=== PATIENT | male | born 1975 | race Caucasian/White ===

== ENCOUNTER 2024-02-23 17:13 | Emergency (ER) | payer OTHER ==
[~2024-02-23] VITALS: Ht 182.9 cm; Wt 88.5 kg
[2024-02-23] MEDS ORDERED: DIAZ5I (17:40)
[2024-02-23] MEDS ORDERED: OXYC5 (17:40)
[2024-02-23] MEDS ORDERED: GABA100 (17:40)
[2024-02-23 17:41] LABS: BASOPHILS ABSOLUTE AUTO 0.03 K/mm3 (0.00-0.23); BASOPHILS PERCENT AUTO 1 % (0-2); EOSINOPHILS ABSOLUTE AUTO 0.11 K/mm3 (0.00-0.68); EOSINOPHILS PERCENT AUTO 3 % (0-6); Hematocrit 43.3 % (37.0-53.0); Hemoglobin 14.7 g/dL (13.5-17.5); IMMATURE GRAN ABSOLUTE AUTO 0.01 K/mm3 (0.00-0.10); IMMATURE GRAN PERCENT AUTO 0 % (0-1); LYMPHOCYTES ABSOLUTE AUTO 1.79 K/mm3 (0.84-5.20); LYMPHOCYTES PERCENT AUTO 44 % (21-46); MONOCYTES ABSOLUTE AUTO 0.32 K/mm3 (0.16-1.47); MONOCYTES PERCENT AUTO 8 % (4-13); Mean Corpuscular HGB 31.7 pg (26.0-34.0); Mean Corpuscular HGB Conc 33.9 g/dL (31.5-36.5); Mean Corpuscular Volume 94 fL (80-100); Mean Platelet Volume 9.5 fL (9.1-12.4); NEUTROPHILS ABSOLUTE AUTO 1.78 K/mm3 (1.96-9.15); NEUTROPHILS PERCENT AUTO 44 % (41-73); Platelet Count 130 K/mm3 (150-400); RDW Coefficient Variation 14.7 % (11.7-14.2); RDW Standard Deviation 50.7 fL (35.1-46.3); Red Blood Cell Count 4.63 M/mm3 (4.30-5.90); White Blood Cell Count 4.04 K/mm3 (4.00-11.30)
[2024-02-23] MEDS ORDERED: AMPDEX5 (17:41)
[2024-02-23 18:06] LABS: Albumin, Blood 3.6 g/dL (3.4-5.0); Albumin/Globulin Ratio 0.8 (0.8-1.8); Bilirubin, Total 0.8 mg/dL (0.1-1.0); Bun/Creatinine Ratio 10.3 (12.0-20.0); Creatinine, Blood 0.68 mg/dL (0.60-1.20); Globulin, Blood 4.3 g/dL (2.2-4.0); Potassium, Blood 3.6 mmol/L (3.5-5.5); Total Protein, Blood 7.9 g/dL (6.4-8.2)
[2024-02-23] MEDS ORDERED: FentaNYL Citrate 50 MCG/ML 2 ML Injection IV ONE (19:05)
[2024-02-23] MEDS ORDERED: HYDROmorphone HCl/Pf 1MG SYR IV ONE (20:45)
[2024-02-23] MEDS ORDERED: NS 1,000 ML IV SCH (22:40)
== END 2024-02-24 00:38 | disposition home or self-care (01) ==
LOC: ER 17:13
PROVIDERS: Student in an Organized Health Care Education/Training Program
DX: R10.32 Left lower quadrant pain (principal); K62.5 Hemorrhage of anus and rectum; Z79.899 Other long term (current) drug therapy
CPT/HCPCS: 74174; 80053; 83605; 85025; 93005; 93010; 96361; 96374-59; 96375; 99284-25; J1171; J3010; J7030; Q9967

== ENCOUNTER 2024-04-01 10:26 | Inpatient (IN) | payer OTHER ==
[~2024-04-01] VITALS: Ht 182.9 cm; Wt 91.4 kg
[~2024-04-01 10:26] MED LIST: AMPDEX5; DIAZ5I; GABA100; OXYC5
[2024-04-01 10:47] LABS: BASOPHILS ABSOLUTE AUTO 0.05 K/mm3 (0.00-0.23); BASOPHILS PERCENT AUTO 1 % (0-2); EOSINOPHILS ABSOLUTE AUTO 0.14 K/mm3 (0.00-0.68); EOSINOPHILS PERCENT AUTO 3 % (0-6); Hematocrit 44.5 % (37.0-53.0); Hemoglobin 15.2 g/dL (13.5-17.5); IMMATURE GRAN ABSOLUTE AUTO 0.01 K/mm3 (0.00-0.10); IMMATURE GRAN PERCENT AUTO 0 % (0-1); LYMPHOCYTES ABSOLUTE AUTO 1.41 K/mm3 (0.84-5.20); LYMPHOCYTES PERCENT AUTO 30 % (21-46); MONOCYTES ABSOLUTE AUTO 0.15 K/mm3 (0.16-1.47); MONOCYTES PERCENT AUTO 3 % (4-13); Mean Corpuscular HGB 32.8 pg (26.0-34.0); Mean Corpuscular HGB Conc 34.2 g/dL (31.5-36.5); Mean Corpuscular Volume 96 fL (80-100); Mean Platelet Volume 9.6 fL (9.1-12.4); NEUTROPHILS PERCENT AUTO 62 % (41-73); Platelet Count 144 K/mm3 (150-400); RDW Coefficient Variation 13.7 % (11.7-14.2); RDW Standard Deviation 48.7 fL (35.1-46.3); Red Blood Cell Count 4.64 M/mm3 (4.30-5.90); White Blood Cell Count 4.66 K/mm3 (4.00-11.30)
[2024-04-01 11:24] LABS: International Normalized Ratio 1.08; Prothrombin Time Results 11.5 Sec (9.7-11.5)
[2024-04-01] MEDS ORDERED: FentaNYL Citrate 50 MCG/ML 2 ML Injection IV ONE ×3 (11:30→18:05)
[2024-04-01] MEDS ORDERED: Pantoprazole Sodium 40 MG Injection IV ONE (11:30)
[2024-04-01] MEDS ORDERED: Ondansetron HCl 2 MG / ML 2ML Vial IV ONE (11:30)
[2024-04-01 12:19] LABS: Albumin, Blood 4.8 g/dL (3.4-5.0); Bun/Creatinine Ratio 14.4 (12.0-20.0); Calcium, Blood 9.3 mg/dL (8.5-10.1); Creatinine, Blood 0.63 mg/dL (0.60-1.20); Globulin, Blood 4.8 g/dL (2.2-4.0); Potassium, Blood 4.1 mmol/L (3.5-5.5); Total Protein, Blood 9.6 g/dL (6.4-8.2)
[2024-04-01] MEDS ORDERED: Haloperidol Lactate Inj. 5 MG/ML Injection IV ONE (12:45)
[2024-04-01] MEDS ORDERED: D5W-NS 1,000 ML IV SCH (13:30)
[2024-04-01] MEDS ORDERED: Thiamine HCl 100 MG in NS 50 ML IV ONE (13:35)
[2024-04-01 13:57] LABS: Base Excess Venous -17.4 mmol/L; Bicarbonate Venous 13.3 mmol/L (24.0-30.0); PCO2 Venous 23.8 mmHg (38-42); pH Blood Venous 7.24 (7.34-7.37)
[2024-04-01 14:12] LABS: Beta-hydroxybutyrate 98.3 mg/dL (0.2-2.8)
[2024-04-01] MEDS ORDERED: HYDROcodone 7.5-APAP 325 TAB PO PRN (15:10)
[2024-04-01] MEDS ORDERED: ChlordiazePOXIDE 25 MG Cap PO PRN (15:15)
[2024-04-01] MEDS ORDERED: NS 1,000 ML IV SCH (15:15)
[2024-04-01] MEDS ORDERED: LORazepam 2 MG/ML 1ML Injection IV PRN (15:15)
[2024-04-01] MEDS ORDERED: CefTRIAXone Sodium 1,000 MG in NS 100 ML IV SCH (15:21)
[2024-04-01] MEDS ORDERED: FentaNYL Citrate 50 MCG/ML 2 ML Injection IV PRN (15:30)
[2024-04-01] MEDS ORDERED: CefTRIAXone 1000 MG Vial ONE (15:46)
[2024-04-01] MEDS ORDERED: MetroNIDAZOLE 500MG/NS 100 ml 100 ML IV SCH (16:00)
[2024-04-01 16:29] LABS: Bun/Creatinine Ratio 13.9 (12.0-20.0); Creatinine, Blood 0.65 mg/dL (0.60-1.20); Potassium, Blood 4.1 mmol/L (3.5-5.5)
[2024-04-01] MEDS ORDERED: FLU VACC TS2024-25(6MOS UP)/PF 45 MCG/0.5 ML SYRINGE IM ONE (17:00)
[2024-04-01 17:32] VITALS: BP 139/82
[2024-04-01] MEDS ORDERED: Ondansetron HCl 2 MG / ML 2ML Vial IV PRN ×2 (18:05→21:05)
--- NOTE | 2024-04-01 18:27 | NUR ---
SHIFT SUMMARY PT A&OX4, VSS, AND AMB W/ SBA FROM GURNEY TO BED. PT C/O PAIN AND NAUSEA THAT WAS MEDICATED PER EMAR. GI PANEL UNCOLLECTED AT THIS TIME DUE TO NO BM FROM PT. PT ORIENTED TO ROOM AND CALL LIGHT, CALL LIGHT PLACED WITHIN REACH.
[2024-04-01] MEDS ORDERED: HYDROmorphone HCl/Pf 1MG SYR IV PRN (20:20)
[2024-04-01 20:53] VITALS: BP 131/92
[2024-04-01] MEDS ORDERED: Lactobacil 2-S.Thermo-Bifido 1 1 Cap PO SCH (21:00)
[2024-04-01] MEDS ORDERED: Sennosides 8.6 MG Tab PO SCH (21:00)
[2024-04-02 00:31] VITALS: BP 129/81
[2024-04-02 03:20] VITALS: BP 128/84
[2024-04-02] MEDS ORDERED: Pantoprazole Sodium 40 MG Injection IV SCH (06:00)
[2024-04-02 06:16] LABS: BASOPHILS ABSOLUTE AUTO 0.03 K/mm3 (0.00-0.23); BASOPHILS PERCENT AUTO 1 % (0-2); EOSINOPHILS PERCENT AUTO 0 % (0-6); Hematocrit 36.6 % (37.0-53.0); Hemoglobin 12.6 g/dL (13.5-17.5); IMMATURE GRAN ABSOLUTE AUTO 0.01 K/mm3 (0.00-0.10); IMMATURE GRAN PERCENT AUTO 0 % (0-1); LYMPHOCYTES ABSOLUTE AUTO 0.81 K/mm3 (0.84-5.20); LYMPHOCYTES PERCENT AUTO 22 % (21-46); MONOCYTES ABSOLUTE AUTO 0.25 K/mm3 (0.16-1.47); MONOCYTES PERCENT AUTO 7 % (4-13); Mean Corpuscular HGB Conc 34.4 g/dL (31.5-36.5); Mean Corpuscular Volume 96 fL (80-100); NEUTROPHILS ABSOLUTE AUTO 2.59 K/mm3 (1.96-9.15); NEUTROPHILS PERCENT AUTO 70 % (41-73); Platelet Count 75 K/mm3 (150-400); RDW Coefficient Variation 13.2 % (11.7-14.2); RDW Standard Deviation 46.9 fL (35.1-46.3); Red Blood Cell Count 3.82 M/mm3 (4.30-5.90); White Blood Cell Count 3.69 K/mm3 (4.00-11.30)
--- NOTE | 2024-04-02 06:31 | NUR ---
SHIFT SUMMARY PT A&Ox4. PT C/O ABD PAIN AND NAUSEA T/O NIGHT. MEDICATED PER EMAR. PT TOLERATING PO MEDICATIONS. NO EPISODES OF VOMITTING AND NO BM. PT REPORTS HE IS PASSING SOME GAS. NO EVENTS ON TELE. NS INFUSING @ 100ml/hr. VSS. BED IN LOWEST POSITION AND CALL LIGHT IN REACH.
[2024-04-02 06:54] LABS: Albumin, Blood 3.7 g/dL (3.4-5.0); Bilirubin, Total 1.8 mg/dL (0.1-1.0); Bun/Creatinine Ratio 14.6 (12.0-20.0); Calcium, Blood 8.6 mg/dL (8.5-10.1); Creatinine, Blood 0.62 mg/dL (0.60-1.20); Globulin, Blood 3.8 g/dL (2.2-4.0)
[2024-04-02 06:56] LABS: Total Protein, Blood 7.5 g/dL (6.4-8.2)
[2024-04-02 07:34] VITALS: BP 137/92
[2024-04-02] MEDS ORDERED: Potassium Chloride 40 MEQ in NS 250 ML IV ONE (07:55)
[2024-04-02] MEDS ORDERED: Thiamine HCl 100 MG in NS 50 ML IV SCH (09:00)
[2024-04-02] MEDS ORDERED: Folic Acid 1 MG in NS 50 ML IV SCH (09:00)
[2024-04-02] MEDS ORDERED: HYDROmorphone HCl 2 MG Tab PO PRN (11:30)
[2024-04-02] MEDS ORDERED: Ketorolac Tromethamine 30mg Vial IV PRN (11:35)
[2024-04-02 14:00] VITALS: BP 133/74
--- NOTE | 2024-04-02 18:11 | NUR ---
RN NOTE LIQUID STOOL ~100 ML DARK BROWN COMPLETELY LIQUID. SENT TO LAB. + ORACIO PALOMINO. GIVEN EDMOND.
--- NOTE | 2024-04-02 18:21 | NUR ---
SHIFT SUMMARY MR GUSMAN HAS HAD ONE LIQUID DARK BROWN STOOL TODAY. OCCASIONAL DRY HEAVES, NO EMESIS. HE C/O CONSTANT ABDOMINAL PAIN THAT HE RATES 8-9/10 MOST OF THE SHIFT. HIS FACIAL EXPRESSION IS RELAXED, QUIET APPROPPRIATE CONVERSATION. HE DENIES VERBAL OR AUDITORY HALLUCINATIONS, NO TREMORS. REQUESTING PAIN MEDICATIONS SOON THEY ARE DUE. BED LOW, CALL LIGHT IN REACH.
[2024-04-02 19:23] VITALS: BP 131/75
--- NOTE | 2024-04-02 19:58 | NUR ---
PT HAVING PERSISTENT N/V AFTER GETTING IV ZOFRAN AT APPROX 1810. DISCUSSED WITH HOSPITALIST. NEW ORDER RECEIVED FOR REGLAN 5MG IV Q6H PRN N/V.
[2024-04-02] MEDS ORDERED: Metoclopramide HCl 5MG / ML 2ML Vial IV PRN (20:00)
[2024-04-02 20:01] LABS: Adenovirus F 40/41 Not Detected (NOT DETECT); Astrovirus Not Detected (NOT DETECT); Campylobacter Sp Not Detected (NOT DETECT); Cryptosporidium Not Detected (NOT DETECT); Cyclospora Cayetanensis Not Detected (NOT DETECT); E. Coli O157 Not Detected (NOT DETECT); Entamoeba Histolytica Not Detected (NOT DETECT); Enteroaggregative E. coli-EAEC Not Detected (NOT DETECT); Enteropathogenic E. coli-EPEC Not Detected (NOT DETECT); Enterotoxigenic E. coli-ETEC Not Detected (NOT DETECT); Giardia Lamblia Not Detected (NOT DETECT); Norovirus GI/GII Not Detected (NOT DETECT); Plesiomonas Shigelloides Not Detected (NOT DETECT); Rotavirus A Not Detected (NOT DETECT); Salmonella Sp Not Detected (NOT DETECT); Sapovirus Not Detected (NOT DETECT); Shiga Toxin-prod E. coli-STEC Not Detected (NOT DETECT); Shigella/Enteroin E. coli-EIEC Not Detected (NOT DETECT); Vibrio Cholerae Not Detected (NOT DETECT); Vibrio Sp Not Detected (NOT DETECT); Yersinia Enterocolitica Not Detected (NOT DETECT)
--- NOTE | 2024-04-02 22:47 | NUR ---
PT C/O N/V AND HAD X1 EMESIS AT BEGINNING OF SHIFT SHORTLY AFTER GETTING PO DILAUDED FROM DAY SHIFT NURSE. THIS NURSE DISPOSED OF EMESIS AND MEDICATION. PRN CIWA DONE WITH A SCORE OF 9. PT REPORTS LAST DRINK WAS "4 DAYS AGO." NEW ORDER REC'D FOR IV REGLAN 5MG Q 6H PRN N/V. ADMINISTERED WITH MINIMAL EFFECT; PT STILL WRETCHING WITH JUST SALIVA IN EMESIS BAG. PRN ATIVAN 1MG IV GIVEN PER ORDER FOR CIWA SCORE. PT CONTINUES TO ASK FOR IV DILAUDED. NOTED DECREASED WRETCHING AFTER ATIVAN GIVEN.
[2024-04-02 23:55] VITALS: BP 140/94
[2024-04-03] MEDS ORDERED: HYDROmorphone HCl/Pf 1MG SYR IV PRN (00:55)
[2024-04-03 04:01] VITALS: BP 126/85
--- NOTE | 2024-04-03 04:47 | NUR ---
WALLCOVERING TEXTURER SUMMARY: SEE NURSING NOTE AT BEGINNING OF SHIFT FOR MORE INFO. PT ADMITTED FOR COLITIS. ISOLATION FOR C-DIFF +. FULL CODE. A&O X4, MAKES NEEDS KNOWN. PT NOTED TO EXCESSIVELY USE CALL LIGHT ASKING FOR IV DILAUDED T/O SHIFT. PT NOTED TO HAVE EMESIS X3 THIS SHIFT. NEW ORDERS OBTAINED FOR N/V AND PAIN. MEDICATED MULTIPLE TIMES T/O SHIFT FOR N/V AND PAIN; WITH EVENTUAL GOOD EFFECTIVENESS. WRETCHING HAS SUBSIDED AND LUQ, LLQ ABD PAIN HAS BEEN INTERMITTENT. PT NOTED TO BE REQUSTING MEDS ACCORDING TO HIS REPORTED UNDERSTANDING OF HOW OFTEN HE CAN GET THEM. PT EDUCATED ON USE OF MEDS AND PARAMETERS OF ADMINISTRATION AND USE OF MEDS WELL THE NEED TO TRY AND GET NAUSEA UNDER CONTROL. PT VERBALIZED UNDERSTANDING AND SUBSIDED IN USE OF CALL LIGHT FOR MEDS. NS INFUSING AT 100ML/HR. PT NOTED TO DISCONNECT HIS IV FROM FLUIDS TO GOT TO BATHROOM. THIS NURSE EDUCTAED PT ON RISKS OF THIS BEHAVIOR AND ADVISED PT NOT TO DO THIS AGAIN. PT VERBALIZED UNDERSTANDING AND APOLOGETIC. PT INDEPENDENT WITH CARES IN ROOM. CALL LIGHT IN REACH. CARES ONGOING ORDERED. BED IN LOWEST POSITION.
[2024-04-03 07:12] VITALS: BP 135/93
[2024-04-03 07:21] LABS: BASOPHILS ABSOLUTE AUTO 0.02 K/mm3 (0.00-0.23); BASOPHILS PERCENT AUTO 1 % (0-2); EOSINOPHILS ABSOLUTE AUTO 0.01 K/mm3 (0.00-0.68); EOSINOPHILS PERCENT AUTO 0 % (0-6); Hematocrit 35.7 % (37.0-53.0); Hemoglobin 12.2 g/dL (13.5-17.5); IMMATURE GRAN PERCENT AUTO 0 % (0-1); LYMPHOCYTES ABSOLUTE AUTO 0.78 K/mm3 (0.84-5.20); LYMPHOCYTES PERCENT AUTO 34 % (21-46); MONOCYTES ABSOLUTE AUTO 0.15 K/mm3 (0.16-1.47); MONOCYTES PERCENT AUTO 7 % (4-13); Mean Corpuscular HGB 33.1 pg (26.0-34.0); Mean Corpuscular HGB Conc 34.2 g/dL (31.5-36.5); Mean Corpuscular Volume 97 fL (80-100); Mean Platelet Volume 10.5 fL (9.1-12.4); NEUTROPHILS ABSOLUTE AUTO 1.32 K/mm3 (1.96-9.15); NEUTROPHILS PERCENT AUTO 58 % (41-73); Platelet Count 53 K/mm3 (150-400); RDW Coefficient Variation 12.9 % (11.7-14.2); Red Blood Cell Count 3.69 M/mm3 (4.30-5.90); White Blood Cell Count 2.28 K/mm3 (4.00-11.30)
[2024-04-03 07:44] LABS: Albumin, Blood 3.6 g/dL (3.4-5.0); Bilirubin, Total 1.2 mg/dL (0.1-1.0); Bun/Creatinine Ratio 7.1 (12.0-20.0); Calcium, Blood 8.9 mg/dL (8.5-10.1); Creatinine, Blood 0.57 mg/dL (0.60-1.20); Globulin, Blood 3.5 g/dL (2.2-4.0); Potassium, Blood 2.9 mmol/L (3.5-5.5); Total Protein, Blood 7.1 g/dL (6.4-8.2)
[2024-04-03] MEDS ORDERED: Potassium Chloride 20 MEQ in NS 90 ML IV SCH (08:30)
--- NOTE | 2024-04-03 09:00 | NUR ---
Pt frequently calling for pain meds, when follow up he states it didn't help as much as iv, a/ox4, states he's not going to eat anything this am, lungs are clear t/o, resp even and unlabord, on r/a, no cough noted, hrr, no edema noted, ppp+2, cap refill<3 sec, vs stable, afebrile, piv to lfa site is clear and patent, infusing ns at 100mls/hr, btx4, abd flat soft tender, voids without diff, states his stool is loose, so held senna, when data warehouse administrator went in room he stats no bm, skin c/w//d, ancelmo, danyel, call light in reach.
--- NOTE | 2024-04-03 10:50 | NUR ---
pt came out of the bathroom with dk brown liquid stool all over the floor, some on the bed, and blood on his hands, he states he is bleeding from stool however stool doesnt appear to have blood, started his vanco per Dr. Crowell, irrigationist is getting him cleaned up, notified of findings, call light in reach.
[2024-04-03 11:34] LABS: Hematocrit 36.2 % (37.0-53.0); Hemoglobin 12.8 g/dL (13.5-17.5)
[2024-04-03] MEDS ORDERED: Vancomycin HCl 125 MG Cap PO SCH (12:00)
[2024-04-03 15:06] VITALS: BP 144/93
--- NOTE | 2024-04-03 18:41 | NUR ---
pt has excessively called for pain meds throughout this shift. finally wrote down when he can have next and this evening asking for them early, he has been up to the bathroom several times with loose dk brown stools, no further changes this shift, call light in reach.
[2024-04-03 20:38] VITALS: BP 145/93
[2024-04-03 23:55] VITALS: BP 132/103
[2024-04-04 03:31] VITALS: BP 147/97
--- NOTE | 2024-04-04 05:54 | NUR ---
ELECTRONICS MECHANIC SUMMARY: PT NOTED TO HAVE DECREASED C/O NAUSEA AND PAIN T/O SHIFT. NO NOTED OR REPORTED EMESIS. MEDICATED PER EMAR ORDERS FOR PAIN AND NAUSEA; EFFECTIVE. NO ADVERSE SIDE EFFECTS NOTED TO GUY PALOMINO. NO ACUTE EVENTTS OVERNIGHT. PT HAD X1 REPORTED BM AT BEGINNING OF SHIFT. PT USING CALL LIGHT APPROPRIATELY TONIGHT. PT HOPEFUL TO D/C TODAY. CALL LIGHT IN REACH. BED IN LOWEST POSITION. CARES CONTINUE ORDERED.
[2024-04-04 07:45] VITALS: BP 137/93
[2024-04-04 09:04] LABS: BASOPHILS ABSOLUTE AUTO 0.02 K/mm3 (0.00-0.23); BASOPHILS PERCENT AUTO 1 % (0-2); EOSINOPHILS ABSOLUTE AUTO 0.03 K/mm3 (0.00-0.68); EOSINOPHILS PERCENT AUTO 1 % (0-6); Hematocrit 36.6 % (37.0-53.0); Hemoglobin 12.8 g/dL (13.5-17.5); IMMATURE GRAN PERCENT AUTO 0 % (0-1); LYMPHOCYTES ABSOLUTE AUTO 0.97 K/mm3 (0.84-5.20); LYMPHOCYTES PERCENT AUTO 40 % (21-46); MONOCYTES ABSOLUTE AUTO 0.16 K/mm3 (0.16-1.47); MONOCYTES PERCENT AUTO 7 % (4-13); Mean Corpuscular HGB 33.3 pg (26.0-34.0); Mean Corpuscular Volume 95 fL (80-100); Mean Platelet Volume 11.4 fL (9.1-12.4); NEUTROPHILS ABSOLUTE AUTO 1.22 K/mm3 (1.96-9.15); NEUTROPHILS PERCENT AUTO 51 % (41-73); RDW Standard Deviation 45.3 fL (35.1-46.3); Red Blood Cell Count 3.84 M/mm3 (4.30-5.90)
[2024-04-04 09:20] LABS: Platelet Count 49 K/mm3 (150-400)
[2024-04-04 09:35] LABS: Bun/Creatinine Ratio 5.5 (12.0-20.0); Calcium, Blood 8.5 mg/dL (8.5-10.1); Creatinine, Blood 0.54 mg/dL (0.60-1.20); Potassium, Blood 2.7 mmol/L (3.5-5.5)
[2024-04-04] MEDS ORDERED: Potassium Chloride 20 MEQ in NS 90 ML IV SCH (10:25)
[2024-04-04] MEDS ORDERED: Potassium Chloride 20 MEQ TabCR PO ONE (11:00)
--- NOTE | 2024-04-04 11:15 | NUR ---
SHIFT SUMMARY AND PT LEAVING AMA PATIENT ALERT AND INTERACTIVE. PATIENT STATES THAT HE HAS HAD MULTIPLE BLACK TARRY STOOLS AND CONTINUES TO HAVE ABDOMINAL PAIN. PATIENT INDEPENDENT IN THE ROOM. PATIENT UPSET THAT TORADOL WILL BE DC'D BECAUSE OF POSSIBLE BLEEDING. PATIENT WANTING ADDITIONAL PAIN MEDICATIONS ALONG WITH DILAUDID. EDUCATED PATIENT RELATED TO NARCOTICS. NOTIFIED DR. MATIAS RELATED TO POSSIBLE BLEEDING BECAUSE OF TARRY STOOLS AND PATIENT WANTING NORCO IF NO LONGER ABLE TO HAVE TORADOL. DR. MATIAS WENT TO SPEAK TO PATIENT AND PATIENT REQUESTING TO LEAVE AMA. AMA PAPERS SIGNED. IV'S DC'D. BELONGINGS RETURNED TO PATIENT. PATIENT AMBULATED OUT WITH BELONGINGS.
== END 2024-04-04 11:51 | disposition left against medical advice (07) | DRG 372 ==
LOC: ER 10:26 → ERHOLD 10:27 → MEDS 17:25
PROVIDERS: Emergency Medicine; Family Medicine; ADMIT Internal Medicine
DX: A04.72 Enterocolitis due to Clostridium difficile, not specified as recurrent (principal); D61.818 Other pancytopenia; K92.0 Hematemesis; E87.21 Acute metabolic acidosis; K74.60 Unspecified cirrhosis of liver; M54.2 Cervicalgia; F17.290 Nicotine dependence, other tobacco product, uncomplicated; M54.9 Dorsalgia, unspecified; Z79.899 Other long term (current) drug therapy; Z79.891 Long term (current) use of opiate analgesic; F10.229 Alcohol dependence with intoxication, unspecified; E87.6 Hypokalemia; K76.0 Fatty (change of) liver, not elsewhere classified; Z76.5 Malingerer [conscious simulation]; Y90.6 Blood alcohol level of 120-199 mg/100 ml; Z53.29 Procedure and treatment not carried out because of patient's decision for other reasons
CPT/HCPCS: 36415; 74177; 80048; 80053; 80320; 82010; 82803; 83605; 83690; 85014; 85018; 85025; 85610; 85730; 86850; 86900; 86901; 87324; 87507; 93005; 93010; 94760; 96365-59; 96367; 96375; 96376; 99285-25; A9270; G0378; G0480; J0696; J1171; J1630; J1885; J2060; J2405; J2470; J2765; J3010; J3411; J3480; J7030; J7042; J7050; Q9967